=== PATIENT | female | born 2000 | race Caucasian/White ===

== ENCOUNTER 2023-01-17 13:41 | Outpatient (CLI) | payer MEDICAID, SELFPAY ==
--- NOTE | 2023-01-17 14:00 | CRLHL7_ITS ---
For Patients: As a result of the Century Cures Act, medical imaging exams and procedure reports are released immediately into your electronic medical record. You may view this report before your referring provider. If you have questions, please contact your health care provider. INDICATION: First trimester scan, establish dates. COMPARISON: None. TECHNIQUE: Real-time hilton-scale imaging of the pelvis was performed. FINDINGS: Sonographic imaging demonstrates a single living intrauterine gestation. The embryo demonstrates a regular cardiac rate measuring 159 beats per minute. The embryo`s crown-rump length measurement of 5.3 cm corresponds to a gestational age of 12 weeks 0 days with a sonographic due date of 08/01/2023. There is a normal-appearing yolk sac. There are no gross abnormalities noted within the embryo at this early state of development. The gestational sac has a normal appearance. There is a 2.3 x 1.2 x 1.0 cm perigestational hemorrhage superior and to the right of the gestational sac. The amount of fluid within the sac appears appropriate for gestational age. The cervix is closed. The myometrium appears normal. The ovaries are of normal size. There are no suspicious fluid collections noted in the cul-de-sac. IMPRESSION: Single living intrauterine with sonographic gestational age 12 weeks 0 days and sonographic due date 08/01/2023. Right superior subchorionic hemorrhage measuring 2.3 x 1.2 x 1.0 cm. Dictated by Kendall Dempsey MD @ 01/19/2023 9:43:15 AM (Electronically Signed)
== END 2023-01-17 13:42 | disposition home or self-care (01) ==
LOC: US 13:42
PROVIDERS: Visit Provider Registered Nurse
DX: Z34.81 Encounter for supervision of other normal pregnancy, first trimester (principal); Z3A.12 12 weeks gestation of pregnancy
CPT/HCPCS: 76817

== ENCOUNTER 2023-01-17 14:54 | Outpatient (CLI) | payer MEDICAID, SELFPAY ==
[2023-01-17 19:06] LABS: Chlamydia DNA Amplified* NOT DETECTED (No Detected); GC DNA Amplified* NOT DETECTED (No Detected)
== END 2023-01-17 14:55 | disposition home or self-care (01) ==
PROVIDERS: Visit Provider Registered Nurse
DX: Z34.91 Encounter for supervision of normal pregnancy, unspecified, first trimester (principal); O20.9 Hemorrhage in early pregnancy, unspecified; Z3A.12 12 weeks gestation of pregnancy
CPT/HCPCS: 86592; 86703; 86762; 86787; 86803; 86850; 86900; 86901; 87086; 87186; 87340; 87491; 87591

== ENCOUNTER 2023-11-05 22:15 | Emergency (ER) | payer MEDICAID, SELFPAY ==
[2023-11-05 22:26] VITALS: BP 126/84; PULSE 120; RESP 16; TEMP 36.5; O2SAT 97; BMI 36.0
--- NOTE | 2023-11-05 22:45 | ED.GENADULT ---
HPI - General Adult General Chief complaint: Fever Stated complaint: possible mastitis Time Seen by Provider: 11/05/23 22:24 History of Present Illness HPI narrative: states 4d L sided mastitis, child 4 mo old , pt pumping. tylenol at 1600 . pt states also 2 days of nausea, headache, chills, fever 99.x 23-year-old woman presenting to the emergency department with complaint of concern of potential mastitis. Over the last 4 days has had increasing left-sided breast pain and some swelling. Has not noticed any unusual discharge or drainage. Has then had 2 days now of worsening body aches and chills. Has not measured a fever though elevated temperature little over 99. Is also nauseated. No abdominal pain. No vomiting or diarrhea. Does have a history of exercise-induced asthma and she is feeling a little tighter in her chest but otherwise no chest pain. No rashes noted otherwise. . Has never had mastitis. Child is 4-month-old. She is getting little breast milk anymore. She has not been breast-feeding at that left side since has been hurting but has been pumping. Marge herself due to feeling bad and with nausea is had limited intake over the last couple of days. Related Data Home Medications Medication Instructions Recorded Confirmed docosahexaenoic acid 200 mg mg PO 01/17/23 01/17/23 capsule ( DHA) Previous Rx's Medication Instructions Recorded promethazine 12.5 mg tablet 12.5 - 25 mg (1 - 2 x 12.5 mg) PO 01/17/23 Q4-6H PRN nausea and vomiting #30 tabs cephalexin 500 mg capsule 500 mg PO QID 8 days #32 caps 11/06/23 ondansetron 4 mg disintegrating 4 mg PO Q6H PRN nausea and 11/06/23 tablet vomiting #10 tabs Allergies Allergy/AdvReac Type Severity Reaction Status Date / Time amoxicillin Allergy Severe Anaphylaxis Verified 01/17/23 14:23 penicillin V Allergy Severe Anaphylaxis Verified 01/17/23 14:23 Review of Systems Status of ROS: Reports: 6 or more systems reviewed and unremarkable except as noted in History and below [facility] Medical History History of labor ?Z87.51 - Personal history of pre-term labor (ICD-10) Anxiety and depression ?F41.9 - Anxiety disorder, unspecified (ICD-10) ?F32.A - Depression, unspecified (ICD-10) PTSD (post-traumatic stress disorder) ?F43.10 - Post-traumatic stress disorder, unspecified (ICD-10) Vestibular neuronitis ?H81.20 - Vestibular neuronitis, unspecified ear (ICD-10) Obesity with body mass index (BMI) of 35.0 to 39.9 without comorbidity ?E66.9 - Obesity, unspecified (ICD-10) History of spontaneous (2018) ?Z87.59 - Personal history of other complications of , childbirth and the puerperium (ICD-10) Chorioamnionitis (2018) ?O41.1290 - Chorioamnionitis, unspecified trimester, not applicable or unspecified (ICD-10) Surgical History History of vaginal delivery History of ovarian cystectomy (10/25/20) ?Z98.890 - Other specified postprocedural states (ICD-10) ?Z87.42 - Personal history of other diseases of the female genital tract (ICD-10) Cervical cerclage suture present in third trimester (03/10/20) ?O34.33 - Maternal care for cervical incompetence, third trimester (ICD-10) Family History Daughter Polydactyly Social History Smoking Status: Never smoker Do you use any of these nicotine containing products: None Second hand tobacco smoke exposure: No How often do you have a drink containing alcohol: never How often do you have six or more drinks on one occasion: Never AUDIT-C Alcohol total score: 0 Non-prescribed substance use: denies use Little interest or pleasure in doing things: not at all Feeling down, depressed, or hopeless: not at all service: No Exam Narrative: Exam Narrative: Pleasant. Clearly uncomfortable. Breathing easily. Skin is quite warm and dry. She has some outer zygomatic arch area tattoos. Extremities well perfused without edema. Lungs are clear; without wheeze. Heart is tachycardic. Abdomen is overweight soft nontender. Oropharynx is without erythema little sticky. Neck is supple without lymphadenopathy. Breasts are somewhat pendulous. The left breast is notably a little larger than the right. There is trace darkening or faint erythema in the nadeen-aerolar area. Exquisitely tender to palpation. I do not appreciate discrete a track of erythema though there. No fluctuance or changes consistent with abscess. No discharge noted. The right breast is unremarkable. Const: Vital Signs, click to edit/add: Vital Signs - 24 hr 11/05/23 22:26 Temperature 97.7 F Pulse Rate [Pulse Oximeter] 120 H Respiratory Rate 16 Blood Pressure [Ri t Upper Arm] 126/84 Pulse Oximetry 97 Oxygen Delivery Me thod Room Air Documenting provider has reviewed patient's vital signs: yes Course Vital Signs Vital signs: Initial Vital Signs Temperature 97.7 F 11/05/23 22:26 Temperature Source Temporal Artery Scan 11/05/23 22:26 Pulse Rate 120 H 11/05/23 22:26 Respiratory Rate 16 11/05/23 22:26 Blood Pressure 126/84 11/05/23 22:26 Blood Pressure Mean 98 11/05/23 22:26 Blood Pressure Position Sitting 11/05/23 22:26 Pulse Oximetry 97 11/05/23 22:26 Oxygen Delivery Method Room Air 11/05/23 22:26 Vital Signs Temperature 97.7 F 11/05/23 22:26 Pulse Rate 120 H 11/05/23 22:26 Respiratory Rate 16 11/05/23 22:26 Blood Pressure 126/84 11/05/23 22:26 Pulse Oximetry 97 11/05/23 22:26 Oxygen Delivery Method Room Air 11/05/23 22:26 Temperature 97.7 F 11/05/23 22:26 Pulse Rate 120 H 11/05/23 22:26 Respiratory Rate 16 11/05/23 22:26 Blood Pressure 126/84 11/05/23 22:26 Pulse Oximetry 97 11/05/23 22:26 Oxygen Delivery Method Room Air 11/05/23 22:26 Medications Administered Medications: Discontinued Medications Generic Name Dose Route Start Last Admin Trade Name Freq PRN Reason Stop Dose Admin Sodium Chloride 1,000 mls @ 1,000 mls/hr 11/05/23 22:53 11/05/23 23:10 0.9 % Sodium Chloride 1000 Ml IV 11/05/23 23:52 1,000 mls/hr .Q1H ONE Administration Ketorolac Tromethamine 30 mg 11/05/23 22:53 11/05/23 23:10 Ketorolac 30 Mg/Ml Inj IVP 11/05/23 22:54 30 mg ONCE ONE Administration Ondansetron HCl 4 mg 11/05/23 22:53 11/05/23 23:10 Ondansetron 2 Mg/Ml Inj IVP 11/05/23 22:54 4 mg ONCE ONE Administration Medical Decision Making MDM Narrative Medical decision making narrative: Symptoms are not inconsistent with mastitis. Given community prevalence though also and without significant induration or redness of the breast, I would also screen for COVID influenza. Barring positive tests here I would consider than treating for mastitis. She does feel like she would benefit from some fluids. We can place IV and given normal saline, ketorolac also Zofran. Had noted some tightness in her chest but I do not otherwise see evidence of asthma exacerbation. On reassessment, color looks better. She admits she feels better. Skin seems cooler. CBC was normal and triple swab was negative. Symptoms still most consistent I think with mastitis given location of pain and physical findings. Did discuss potential allergies. Will give a dose of cephalexin here in the emergency department and continued outpatient course. See patient discharge plan Lab Data Lab results reviewed: Yes I reviewed the patient's lab results Labs: Lab Results 11/05/23 11/05/23 Range/Units 22:28 23:13 WBC 5.31 (4.50-11.00) K/uL RBC 4.95 (4.00-5.20) m/uL Hgb 13.6 (12.0-16.0) gm/dL Hct 42.2 (33.0-51.0) % MCV 85 (80-100) fL MCH 28 (26-34) pg MCHC 32 (32-36) gm/dL RDW Coeff of Shona 14.9 (11.5-15.5) % Plt Count 204 (140-440) K/uL Neut % (Auto) 65.1 (42.0-72.0) % Lymph % (Auto) 27.3 (20-44) % [place] % (Auto) 5.8 (0.0-11.0) % Eos % (Auto) 0.6 (0.0-7.0) % Baso % (Auto) 0.4 (0.0-3.0) % Neut # (Auto) 3.46 (1.7-7.0) K/uL Lymph # (Auto) 1.45 (0.90-2.90) K/uL [place] # (Auto) 0.30 (0.00-0.90) K/UL Eos # (Auto) 0.03 (0.00-0.50) K/uL Baso # (Auto) 0.02 (0.00-0.30) K/uL Abs Immat Gran (auto) 0.04 (0.00-0.30) K/uL Imm/Tot Granulo (auto) 0.8 % SARS-CoV-2 (PCR) Negative SARS-CoV-2 (Negative) Influenza Type A (PCR) Negative PCR FLU A (Negative) Influenza Type B (PCR) Negative PCR FLU B (Negative) RSV (PCR) Negative PCR RSV (Negative) Discharge Plan Discharge Clinical Impression: Mastitis Patient Disposition: Home w/ Parent or Adult Condition: Improved Additional Instructions: Stay well-hydrated. Can take up to 800 mg of ibuprofen up to 1000 mg of acetaminophen per dose. These can be combined. Continue to pump. Be seen for marked increase in redness tension pain or development of fever, spreading redness after 2 days, repeated vomiting. Prescriptions: New cephalexin 500 mg capsule 500 mg PO QID 8 Days Qty: 32 0RF ondansetron 4 mg tablet,disintegrating 4 mg PO Q6H PRN (Reason: nausea and vomiting) Qty: 10 0RF No Action DHA 200 mg capsule PO promethazine 12.5 mg tablet 12.5 - 25 mg PO Q4-6H PRN (Reason: nausea and vomiting) Qty: 30 2RF Follow Up/Referrals: Provider,Not a Local [Primary Care Provider] - Stand Alone Forms: true[x] [facility] Info Instructions
[2023-11-05] MEDS: KETOROLAC 30 MG/ML inj IVP (23:10)
[2023-11-05] MEDS: ONDANSETRON 2 MG/ML inj 4 MG IVP (23:10)
[2023-11-05] MEDS: 0.9 % SODIUM CHLORIDE 1000 ml 1,000 ML IV (23:10)
[2023-11-05 23:18] LABS: Basophils Percent Auto 0.4 % (0.0-3.0); Eosinophils Percent Auto 0.6 % (0.0-7.0); Hematocrit 42.2 % (33.0-51.0); Hemoglobin* 13.6 gm/dL (12.0-16.0); Immature Granulocytes Pct Auto 0.8 %; Lymphocytes Percent Auto 27.3 % (20-44); Mean Corpuscular HGB Conc 32 gm/dL (32-36); Mean Corpuscular Hemoglobin 28 pg (26-34); Mean Corpuscular Volume 85 fL (80-100); Monocytes Percent Auto 5.8 % (0.0-11.0); Neutrophils Percent Auto 65.1 % (42.0-72.0); Platelet Count* 204 K/uL (140-440); RDW Coefficient of Variation % 14.9 % (11.5-15.5); Red Blood Count 4.95 m/uL (4.00-5.20); White Blood Count* 5.31 K/uL (4.50-11.00)
[2023-11-05 23:19] LABS: Basophils Absolute Auto 0.02 K/uL (0.00-0.30); Eosinophils Absolute Auto 0.03 K/uL (0.00-0.50); Immature Granulocytes Abs Auto 0.04 K/uL (0.00-0.30); Lymphocytes Absolute Auto 1.45 K/uL (0.90-2.90); Neutrophils Absolute Auto 3.46 K/uL (1.7-7.0)
[2023-11-05 23:20] LABS: Slide Review Reflex No
[2023-11-05 23:21] LABS: PCR FLU A Negative PCR FLU A (Negative); PCR FLU B Negative PCR FLU B (Negative); PCR RSV Negative PCR RSV (Negative)
[2023-11-05 23:37] LABS: SARS PCR* Negative SARS-CoV-2 (Negative)
[2023-11-06] MEDS: cephALEXin 500 MG CAPSULE PO (00:18)
== END 2023-11-06 00:19 | disposition home or self-care (01) ==
PROVIDERS: Emergency Provider Family Medicine
DX: N61.0 Mastitis without abscess (principal)
CPT/HCPCS: 36415; 85025; 87631; 96361; 96374; 96375; 99284; A9270; J1885; J2405; J7030

== ENCOUNTER 2024-06-29 15:30 | Outpatient (CLI) | payer MEDICAID, SELFPAY ==
--- NOTE | 2024-06-29 16:00 | CRLHL7_ITS ---
For Patients: As a result of the Century Cures Act, medical imaging exams and procedure reports are released immediately into your electronic medical record. You may view this report before your referring provider. If you have questions, please contact your health care provider. OBSTETRICAL ULTRASOUND ??? ANATOMY SURVEY, 06/29/2024 INDICATION: anatomy survey. AURE by LMP: 11/02/2024 AURE by ULTRASOUND: 10/30/2024 GESTATIONAL AGE: 22 weeks 0 days TECHNIQUE: Transabdominal pelvic ultrasound. COMPARISON: None. FINDINGS: position: Vertex Cervix: Visualized Length of closed cervix: 3.7 cm Placenta position: Anterior Placenta tip to internal os: 10.0 cm Umbilical cord: 3-vessel cord Placental insertion: Central Amniotic fluid: 6.5 cm SDP ANATOMY SURVEY: Observed Structures Cerebellum: 2.4 cm, 23 weeks 3 days Cisterna magna: 4.8 mm Nuchal fold: 3.8 mm Lateral ventricle: 6.1 mm CSP Midline falx Choroid plexus Spine Stomach Abdominal cord insert Urinary bladder Kidneys Diaphragm Nose/lips Orbital view Profile Upper extremities Lower extremities Hands Feet 4-chamber heart LVOT RVOT 3VV 3VTV Biometry: BPD: 5.3 cm, 22 weeks 1 day, 51.3% HC: 20.2 cm, 22 weeks 3 days, 54.1% AC: 17.7 cm, 22 weeks 4 days, 60.6% FL: 3.6 cm, 21 weeks 4 days, 25.4% FL/AC: 20.62% HC/AC ratio: 1.15 heart rate: 142 bpm age by this ultrasound: 22 weeks 3 days AURE by this ultrasound: 10/30/2024 Estimated weight: 478.48 grams (1 pound 1 ounce) Percentile by AURE: 50.6% IMPRESSION: 1) Single viable intrauterine . 2) Measurements are consistent with dates. 3) Estimated weight is at the 51st percentile. Abdominal circumference is at the 61st percentile. 4) Normal anatomic survey. GUIDO ROE M.D. Body/Diagnostic Radiologist [email or web address] Transcribed: 2:[address]/Dictated by: Guido Roe MD @ 06/30/2024 1:23:00 PM (Electronically Signed)
== END 2024-06-29 15:31 | disposition home or self-care (01) ==
LOC: US 15:31
PROVIDERS: Visit Provider Registered Nurse
DX: Z34.92 Encounter for supervision of normal pregnancy, unspecified, second trimester (principal); Z3A.22 22 weeks gestation of pregnancy
CPT/HCPCS: 76805; 80306; 82565; 82570; 84156; 84443; 84450; 84460; 84520; 86703; 86706; 86803; 86850; 86900; 86901; 87086; 87340; 87491; 87591

== ENCOUNTER 2024-06-29 17:15 | Outpatient (CLI) | payer MEDICAID, SELFPAY ==
[2024-06-29 21:39] LABS: Chlamydia DNA Amplified* NOT DETECTED (No Detected); GC DNA Amplified* NOT DETECTED (No Detected)
== END 2024-06-29 17:16 | disposition home or self-care (01) ==
PROVIDERS: Visit Provider Registered Nurse
DX: Z34.92 Encounter for supervision of normal pregnancy, unspecified, second trimester (principal); Z3A.22 22 weeks gestation of pregnancy
CPT/HCPCS: 80306; 82565; 82570; 84156; 84443; 84450; 84460; 84520; 86592; 86703; 86704; 86706; 86762; 86787; 86803; 86850; 86900; 86901; 87086; 87186; 87340; 87491; 87591

== ENCOUNTER 2024-09-01 08:49 | Outpatient (CLI) | payer MEDICAID, SELFPAY | END 2024-09-01 08:50 | disposition home or self-care (01) | PROVIDERS: Visit Provider Advanced Practice Midwife | DX: Z34.83 Encounter for supervision of other normal pregnancy, third trimester (principal); F12.90 Cannabis use, unspecified, uncomplicated | CPT/HCPCS: 80306 ==

== ENCOUNTER 2024-10-01 15:24 | Outpatient (CLI) | payer MEDICAID, SELFPAY ==
[2024-10-01 19:47] LABS: Chlamydia DNA Amplified* NOT DETECTED (No Detected); GC DNA Amplified* NOT DETECTED (No Detected)
[2024-10-02 14:25] LABS: Strep B DNA Probe POSITIVE (Negative)
[2024-10-02 14:47] LABS: Strep B Susceptibility Needed? Yes
== END 2024-10-01 15:25 | disposition home or self-care (01) ==
PROVIDERS: Visit Provider Obstetrics & Gynecology
DX: Z34.93 Encounter for supervision of normal pregnancy, unspecified, third trimester (principal); Z3A.35 35 weeks gestation of pregnancy
CPT/HCPCS: 80306; 86592; 87081; 87086; 87186; 87491; 87591; 87653

== ENCOUNTER 2025-10-12 13:53 | Outpatient (CLI) | payer MEDICAID, SELFPAY ==
--- NOTE | 2025-10-12 14:00 | CRLHL7_ITS ---
For Patients: As a result of the Cures Act, medical imaging exams and procedure reports are released immediately into your electronic medical record. You may view this report before your referring provider. If you have questions, please contact your health care provider. OB ULTRASOUND LIMITED CLINICAL HISTORY: Dating and viability. COMPARISON: None. TECHNIQUE: Real time hilton scale imaging of the fetus was performed. Transabdominal imaging performed. FINDINGS: LMP: 03/22/2026. GA: 17 weeks 0 days. Gestation: Single. Cervix: Visualized. TA measurement: 3.6 cm. Positioning: Vertex. Amniotic Fluid: 3.7 cm SDP. Placenta: Technique: TA. Placenta Position: Anterior. Dopplers: Heart Rate: 167 bpm. BIOMETRY BPD: 3.2 cm, 16 weeks 0 days. 8.6% HC: 11.7 cm, 15 weeks 5 days. <3% AC: 9.3 cm, 15 weeks 3 days. 8.1% FL: 1.8 cm, 15 weeks 3 days. 3.% FL/AC Ratio: 19.66% HC/AC Ratio: 1.26. EFW: 125.8 grams, 0 lb 4 oz. Age by this US: 15 weeks 5 days. AURE by this US: 03/31/2026. Percentile by AURE: <3% IMPRESSION: 1. Single living intrauterine measures 15 weeks 5 days with sonographic due date 03/31/2026. 2. Estimated weight less than 3rd percentile. Head circumference less than 3rd percentile. All biometrics less than 10th percentile. Clinical date is likely incorrect. 3. Tiny incidental placental lakes noted. Kendall Dempsey M.D. Diagnostic Radiologist [email or web address] Transcribed: 4:31 pm DW/Dictated by: Kendall Dempsey MD @ 10/12/2025 3:50:00 PM (Electronically Signed)
== END 2025-10-12 13:54 | disposition home or self-care (01) ==
LOC: US 13:53
PROVIDERS: Visit Provider Registered Nurse
DX: Z34.92 Encounter for supervision of normal pregnancy, unspecified, second trimester (principal); Z3A.17 17 weeks gestation of pregnancy
CPT/HCPCS: 76815

== ENCOUNTER 2025-10-12 14:47 | Outpatient (CLI) | payer MEDICAID, SELFPAY | END 2025-10-12 14:48 | disposition home or self-care (01) | PROVIDERS: Visit Provider Registered Nurse | DX: Z34.82 Encounter for supervision of other normal pregnancy, second trimester (principal) | CPT/HCPCS: 80306; 83020; 83021; 85660; 86703; 86704; 86762; 86780; 86787; 86803; 86850; 87086; 87340 ==

== ENCOUNTER 2025-10-29 20:08 | Emergency (ER) | payer MEDICAID, SELFPAY ==
--- OUTSIDE RECORDS SUMMARY | 2025-09-30 19:55 | XMS_ITS | Encounter Summary ---
Author Organization [facility] Address [address] [place] [address] Care Team Providers Care Pathology Supervisor Name Role Phone Pedro Jonathon Kim MD Unavailable Carissa Hanna MD Unavailable Krishna Hannah PA-C Unavailable [phone] Lee Lugo MD Unavailable Mayte Alejandre PA-C Unavailable Haim Darby MD Unavailable Teetee Evans ROLLING MILL OPERATOR Primary Care Provider [phone] Teetee Evans CNP Unavailable [phone] Reason for Visit * ReasonCommentsOtalgia Encounter Details DateTypeDepartmentCare Team (Latest Contact Info)Kdqjpmqajyr64/28/2025 7:55 PM DOCTOR PODIATRIC MEDICINE - 09/30/2025 8:56 PM CSTEmerphyllis Pepe [facility] [address] [place] [address] Harry Joel MD [facility] [address] [place] [id number] Acute left otitis media (Primary Dx); Acute otitis externa of left ear, unspecified type Discharge Disposition: Home or Self Care Social History Tobacco UseTypesPacks/DayYears UsedDateSmoking Tobacco: ZypijoEauwqsvrzw2Psvs: 01/2017Smokeless Tobacco: NeverAlcohol UseStandard Drinks/WeekCommentsYes0 (1 standard drink = 0.6 oz pure alcohol)SociallySocial Connection and Isolation PanelAnswerDate RecordedFrequency of Communication with Friends and FamilyNot on file12/30/2023How often do you get together with friends or relatives?More than three times a week12/30/2023ttends Catholic ServicesNot on file12/30/2023 Active Member of Clubs or OrganizationsNot on file12/30/2023ttends Club or Organization MeetingsNot on file12/30/2023Marital StatusNot on file12/30/2023 PHQ-2AnswerDate RecordedPHQ-2 Qhyze222Finsteward [facility] care system [place] of Occupational Health - Occupational Stress QuestionnaireAnswerDate RecordedDo you feel stress - tense, restless, nervous, or anxious, or unable to sleep at night because your mind is troubled all the time - these days?Only a nydtbm2912/30/2023Exercise Vital SignAnswerDate RecordedOn average, how many days per week do you engage in moderate to strenuous exercise (like a brisk walk)?6 days12/30/2023Minutes of Exercise per SessionNot on file12/30/2023Edinburgh Depression Scale AnswerDate RecordedLast EPDS Total ScoreNot on file10/13/2024The thought of harming myself has occurred to me.Never10/13/2024dolescent EducationAnswerDate RecordedGetting School Help NeededNot on file07/25/2023Food InsecurityAnswerDate RecordedWithin the past 12 months, did you worry that your food would run out before you got money to buy more?No10/12/2024Within the past 12 months, did the food you bought just not last and you didn???t have money to getmore?No 10/12/2024Housing StabilityAnswerDate RecordedDo you have housing? (Housing is defined as stable permanent housing and does not include staying outside in a car, in a tent, in an abandoned building, in an overnight half-way, or couch-surfing.)Yes10/12/2024re you worried about losing your housing?No 10/12/2024Financial Resource StrainAnswerDate RecordedWithin the past 12 months, have you or your family members you live with been unable to get utilities (heat, electricity) when it was really needed?No10/12/2024Transportation Needs AnswerDate RecordedWithin the past 12 months, has lack of transportation kept you from medical appointments, getting your medicines, non-medical meetings or appointments, work, or from getting things that you need?Yes10/12/2024 Interpersonal SafetyAnswerDate RecordedDo you feel physically and emotionally safe where you currently live?Yes10/12/2024Within the past 12 months, have you been hit, slapped, kicked or otherwise physically hurt by someone?No10/12/2024 Within the past 12 months, have you been humiliated or emotionally abused in other ways by your partner or ex-partner?No10/12/2024CommentsNoSex and Gender InformationValueDate RecordedSex Assigned at BirthNot on fileLegal Sex Hqxgqx8409/06/2012 3:40 AM CSTGender IdentityNot on fileSexual OrientationNot on fileOccupationIndustryJob Start DateJob End DatestudentNot on fileNot on fileNot on filedocumented as of this encounter Last Filed Vital Signs Vital SignReadingTime TakenCommentsBlood Nqmfmqyz998/8609/30/2025 8:50 PM DOCTOR PODIATRIC MEDICINE Pkjvf342709/30/2025 8:50 PM IJDYbaawvqcbki19.7 ??C (98 ??F)09/30/2025 7:49 PM DOCTOR PODIATRIC MEDICINE Respiratory Bwde516509/30/2025 7:49 PM CSTOxygen Yluvrghfgt457%09/30/2025 8:51 PM CSTInhaled Oxygen Concentration--Oyugow48.9 kg (213 lb 10 oz)09/30/2025 7:49 PM KSFMwkspj501.2 cm (5' 7)09/30/2025 7:49 PM CSTBody Mass Index33.4609/30/2025 7:49 PM CSTdocumented in this encounter Functional Status * Calculated C-SSRS Risk Score (Lifetime/Recent)AnswerDate of AssessmentAuthorNo Risk Amznfhlki27/28/2025 7:52 PM Debyb Ramos RN * [place] Suicide Severity Rating Scale (Screener/Recent Self-Report)Question AnswerDate of AssessmentAuthor1. Wish to be (Past 1 Month)No09/30/2025 7:52 PM Debby Ramos RN2. Non-Specific Active Suicidal Thoughts (Past 1 Month)No09/30/2025 7:52 PM Debby Ramos RN6. Suicidal Behavior (Lifetime)No09/30/2025 7:52 PM Debby Ramos RN documented as of this encounter Discharge Instructions * Discharge Instructions* Harry Joel MD - 09/30/2025 8:45 PM DOCTOR PODIATRIC MEDICINE Discharge Instructions Otitis Media You or your child have an ear infection known as otitis media or middle ear infection (otitis = ear, media = middle). These infections often develop after a viral infection, such as a cold. The cold causes swelling around the pressure- equalizing tube of the ear, which allows fluid to build up in the space behind the eardrum (the middle ear). This fluid build-up can trap bacteria and viruses and increase pressure on the eardrum causing pain. Symptoms of an ear infection can include earache/pain and decreased hearing loss. These symptoms often come on suddenly. For children, symptoms may include fever (temperature >100.4 F), pulling on the ear, fussiness, and decreased activity/appetite. Generally, every Emergency Department visit should have a follow-up clinic visit with either a primary or a specialty clinic/provider. Please follow-up as instructed by your emergency provider today. Return to the Emergency Department if: Your child becomes very fussy or weak. The symptoms get worse, or if you develop a severe headache, stiff neck, or new symptoms. Treatment: The best treatment depends on your age, history of previous infections, and any underlying medical problems. Antibiotics are not given to every patient with an ear infection because studies show that many people with ear infections will improve without using antibiotics. Because antibiotics can have side effects such as diarrhea and stomach upset and can also cause severe allergic reactions, providers aretrying to avoid using antibiotics if it is safe for the patient to do so. In these cases, a prescription for antibiotics may be given to be filled in 24 -48 hours if symptoms are getting worse or notimproving (this is often called ???wait and see?? treatment). If the symptoms are improving, the antibiotic does not need to be taken. Remember, antibiotics do not treat pain. Pain medications. You may take a pain medication such as Tylenol?? (acetaminophen), Advil?? (ibuprofen), Nuprin?? (ibuprofen) or Aleve?? (naproxen). Complications: Tympanic membrane rupture - One possible complication of an ear infection is rupture of the tympanic membrane, or ear drum. This happens because of pressure on the tympanic membrane from the infectedfluid. When the tympanic membrane ruptures, you may have pus or blood drain from the ear. It does not hurt when the membrane ruptures, and many people actually feel better because pressure is released. Fortunately, the tympanic membrane usually heals quickly after rupturing, within hours to days. You should keep water out of the ear until you re-check with your provider to be sure the ear drum has healed. Mastoiditis - Rarely, the area behind the ear can become infected, this area is called the mastoid.If you notice redness and swelling behind your ear, see your provider or return to the Emergency Department immediately. Hearing loss - The fluid that collects behind the eardrum (called an effusion) can persist for weeks to months after the pain of an ear infection resolves. An effusion causes trouble hearing, which is usually temporary. If the fluid persists, however, it can interfere with the process of learning to speak. For this reason, children under 2 need to be seen by their train control electronic technician WITHIN 3 MONTHS to ensure that the fluid has resolved. If you were given a prescription for medicine here today, be sure to read all of the information (including the package insert) that comes with your prescription. This will include important information about the medicine, its side effects, and any warnings that you need to know about. The pharmacist who fills the prescription can provide more information and answer questions you may have about the medicine. If you have questions or concerns that the pharmacist cannot address, please call or return to the Emergency Department. Remember that you can always come back to the Emergency Department if you are not able to see your regular provider in the amount of time listed above, if you get any new symptoms, or if there is anything that worries you. Discharge Instructions Otitis Externa Today you were seen for otitis externa which is a condition that occurs when the ear canal, which is the area that leads from the outer ear to the ear drum, becomes irritated as a result of an infection, allergy, or skin problem. The most common symptoms of this are: pain in the outer ear, especially when the ear is moved, itchiness of the ear, fluid or pus leaking from the ear and difficulty hearing clearly. Swimmer's ear is the name for external otitis that occurs in a person who swims frequently. Generally, every Emergency Department visit should have a follow-up clinic visit with either a primary or a specialty clinic/provider. Please follow-up as instructed by your emergency provider today. Return to the Emergency Department if: Your symptoms get worse, or if you develop a severe headache, stiff neck, or new symptoms. The pain and swelling spread to your face. You develop high fever. Treatment: Treatment of otitis externa aims to reduce pain and eliminate the infection. You should take eitherAdvil?? (ibuprofen) or Tylenol?? (acetaminophen) for control of the ear pain. Ear drops -- Ear drops are usually prescribed to both reduce pain and swelling and kill the bacteria which causes external otitis. It is important to apply the ear drops correctly so that they reach the ear canal: Lie on your side or tilt your head towards the opposite shoulder. Fill the ear canal with drops. Lie on your side for [address] cotton ball in the ear canal for 20 minutes. Finish the entire course of treatment, even if you begin to feel better within a few days. Avoid getting ears wet -- during treatment, you should avoid getting the inside of your ears wet. While showering, you can place a cotton ball coated with petroleum jelly in the ear. However, you should not swim for 7 to 10 days after starting treatment. Avoid wearing hearing aids and in-ear headphones until pain improves. If a wick has been placed in your ear, please do not remove it until seen by your primary provider or Ear, Nose, and Throat (ENT) specialist as directed. Prevention: Do not clean ear canal. Ear wax serves to protect the ears from water, bacteria, and injury. Excessive cleaning or scratching can injure the skin, potentially leading to infection. Swimming on a regular basis removes some of the ear wax, allowing water to soften the skin. Bacteria, which normally live in the ear canal, can then enter the skin more easily. Wearing devices that block the ear canals, such as hearing aids, headphones, or ear plugs, can increase the risk of external otitis (if worn frequently) by injuring the skin. If you swim frequently, experts recommend the following tips to reduce the chance of developing external otitis: Shake your ears dry after swimming. Use ear drops after swimming to prevent ear infections; these are available at most pharmacies without a prescription. Consider wearing ear plugs made for swimming. If you were given a prescription for medicine here today, be sure to read all of the information (including the package insert) that comes with your prescription. This will include important information about the medicine, its side effects, and any warnings that you need to know about. The pharmacist who fills the prescription can provide more information and answer questions you may have about the medicine. If you have questions or concerns that the pharmacist cannot address, please call or return to the Emergency Department. Remember that you can always come back to the Emergency Department if you are not able to see your regular provider in the amount of time listed above, if you get any new symptoms, or if there is anything that worries you. OR PODIATRIC MEDICINE documented in this encounter Medications at Time of Discharge MedicationSigDispense QuantityRefillsLast FilledStart DateEnd Date EPINEPHrine (ANY BX GENERIC EQUIV) 0.3 MG/0.3ML injection 2-pack Indications:Food allergyInject 0.3 mLs (0.3 mg) into the muscle as needed for anaphylaxis 2 each 04/06/2024 cefdinir (OMNICEF) 300 MG capsule Take 1 capsule (300 mg) by mouth 2 times daily for 10 days. 20 capsule ciprofloxacin-dexAMETHasone (CIPRODEX) 0.3-0.1 % otic suspension Place 4 drops Into the left ear 2 times daily for 10 days. 7.5 mL amphetamine-dextroamphetamine (ADDERALL) 30 MG tablet Indications:Adult ADHDTake 1 tablet (30 mg) by mouth 2 times daily. 60 tablet documented as of this encounter ED Notes * Harry Joel MD - 09/30/2025 8:01 PM CST Emergency Department Note History of Present Illness Chief Complaint Otalgia HPI Marge Grayson is a 25 year old female with no pertinent history who presents to the ED forevaluation of otalgia. The patient reports that her left ear began to cause discomfort earlier today, and has gotten worse since onset. Localized left not right. No injuries of ear. Pain is localizedinside of left ear. The right ear feels regular. Denies throat pain, difficulty swallowing. No medical problems, history of issues with the ear. She has an allergy to amoxicillin and penicillin. Following primary care physician at [facility]. Independent Historian None Review of External Notes None Past Medical History Medical History and Problem List MDD ADHD Anxiety Chronic constipation History of asthma Marijuana use History of concussion Obesity PTSD Medications Adderall Surgical History Cervical cerclage, x3 Physical Exam Patient Vitals for the past 24 hrs: BP Temp Pulse Resp Height Weight 09/30/251948 (!) 136/92 98 ??F (36.7 ??C) 102 19 1.702 m (5' 7) 96.9 kg (213 lb 10 oz) Physical Exam Constitutional: Well appearing. HEENT: Atraumatic. PERRL. EOMI. sclera normal bilaterally. No facial swelling or erythema. Mastoid without erythema or warmth. No tenderness. Left TM is erythematous and bulging. Mild swelling and tenderness of the external auditory canal. Moist mucous membranes. Neck: Soft. Supple. No masses or swelling. Musculoskeletal: No edema. Normal range of motion. Neurologic: Alert and oriented. Normal tone and bulk. Normal gait. Skin: No rashes. No edema. Psych: Normal affect. Normal behavior. Diagnostics Lab Results Labs Ordered and Resulted from Time of ED Arrival to Time of ED Departure - No data to display Imaging No orders to display EKG Independent Interpretation None ED Course Medications Administered Medications oxyCODONE (ROXICODONE) tablet 5 mg (5 mg Oral $Given 09/30/252051) cefdinir (OMNICEF) capsule 300 mg (300 mg Oral $Given 09/30/252048) Procedures Procedures Discussion of Management None ED Course ED Course as of 09/30/252039Sep 30, 20252036 I obtained history and examined the patient as noted above Additional Documentation None Medical Decision Making / Diagnosis [facility] Diagnoses: None MIPS None MDM Marge Grayson is a 25 year old female who is afebrile and hemodynamically stable. She has an obvious otitis media without perforation of her left ear. There is also suggestion of an otitis externa with pain with insertion of otoscope and some mild edema. No mastoiditis. She is otherwise well and nontoxic-appearing. Discussed plan for home with antibiotics treatment for otitis media and otitis externa and close primary care follow-up. She was given dose of pain medication here. She is in agreement +'s plan. Discussed supportive care at home and strict return precautions were given. Her questions were answered and she was in no distress at time of discharge. Disposition The patient was discharged. Diagnosis ICD-10-CM 1. Acute left otitis media H66.92 2. Acute otitis externa of left ear, unspecified type H60.502 Discharge Medications Discharge Medication List as of 09/30/2025 8:52 PM START taking these medications Details cefdinir (OMNICEF) 300 MG capsule Take 1 capsule (300 mg) by mouth 2 times daily for 10 days., Disp-20 capsule, R-0, E-Prescribe ciprofloxacin-dexAMETHasone (CIPRODEX) 0.3-0.1 % otic suspension Place 4 drops Into the left ear 2 times daily for 10 days., Disp-7.5 mL, R-0, E-Prescribe Scribe Disclosure: I, José Miguel Dos Santos, am serving as a scribe at 8:40 PM on 09/30/2025 to document services personally performed by Harry Joel MD based on my observations and the provider's statements to me. Harry Joel MD 10/01/25 9180 OR PODIATRIC MEDICINE * Debby Moran RN - 09/30/2025 7:51 PM CST Pt arrives to hospital with L Ear pain rating pain 10/10 that started earlier today and has worsened in the last few hours. Pt did not take any meds prior to arrival. Denies trauma. Last ear infection was in childhood. VSS afebrile Triage Assessment Row Name 09/30/25 1950 Triage Assessment Airway WDL WDL Respiratory WDL Respiratory WDL WDL Skin Circulation/Temperature WDL Skin Circulation/Temperature WDL WDL Cardiac WDL Cardiac WDL WDL Peripheral/Neurovascular WDL Peripheral Neurovascular WDL WDL Cognitive/Neuro/Behavioral WDL Cognitive/Neuro/Behavioral WDL WDL OR PODIATRIC MEDICINE documented in this encounter Plan of Treatment DateTypeDepartmentCare Team (Latest Contact Info)Eccqzpyijyi04/02/2026 10:30 AM CSTOffice Visit [facility] [address] [place] [address] Teetee Evans, [facility] [address] [place] [address] documented as of this encounter Visit Diagnoses Diagnosis Acute left otitis media- Primary Unspecified otitis media Acute otitis externa of left ear, unspecified type documented in this encounter Administered Medications Medication OrderMAR ActionAction DateDoseRateSite cefdinir (OMNICEF) capsule 300 mg STAT, 300 mg, Oral, ONCE, On Fri09/30/25 at 2044, For 1 dose, Indications: Otitis media Indications:Otitis media$Given09/30/2025 8:49 PM [id number] mg oxyCODONE (ROXICODONE) tablet 5 mg 5 mg, Oral, ONCE, On Fri09/30/25 at 2044, For 1 dose $Given09/30/2025 8:52 PM CST5 mgdocumented in this encounter Active and Recently Administered Medications Times are shown in DOCTOR PODIATRIC MEDICINE.Medication Order// cefdinir (OMNICEF) capsule 300 mg (COMPLETED) STAT, 300 mg, Oral, ONCE, On Fri09/30/25 at 2044, For 1 dose, Indications: Otitis media * 2048 ($Given - Provider: Maddi Block RN) oxyCODONE (ROXICODONE) tablet 5 mg (COMPLETED) 5 mg, Oral, ONCE, On Fri09/30/25 at 2044, For 1 dose * 2051 ($Given - Provider: Maddi Block RN) documented in this encounter Additional Health Concerns AssessmentNoted TimePHQ-9 Depression Total Score: 12:45 PM CDT documented as of this encounter Care Teams Team MemberRelationshipSpecialtyStart DateEnd Date Teetee Evans, ROLLING MILL OPERATOR [address] [place] [address] PCP - GeneralInternal Medicine11/12/24 Jonathon Vasquez MD [address] [facility] [address] [facility] [address] [place], [place] [address] Maternal Medicine SpecialistOB/Gyn01/30/18 Carissa Hanna MD [address] [place] [address] MDOB/Gyn02/23/18 Krishna Hannah PA-[place] [address] [place] [address] Referring PhysicianFamily Medicine05/08/22 Lee Lugo MD [address] [facility] [address] [place], [place] [address] MDAllergy & Immunology05/08/22 Mayte Alejandre PA-C [address] [place], [place] [id number] Physician AssistantDermatology05/16/22 Haim Darby MD [address] [place] [address] MDOB/Gyn2 Teetee Evans, ROLLING MILL OPERATOR [address] [place], [place] [address] Assigned PCP07/26/25documented as of this encounter
--- OUTSIDE RECORDS SUMMARY | 2025-10-29 20:10 | XMS_ITS | Patient Health Record ---
Author Organization [facility] [place] [address] [place] [address] Care Team Providers Care Arc Welder Apprentice Name Role Phone Dave Vanegas Primary Care Provider Allergies Allergen (clinical drug ingredient) Drug/Non Drug Allergy documented on EMR Reaction Allergy Type Onset Date Status amoxicillin Amoxicillin Unknown Drug Allergy ActivePenicillinUnknownDrug AllergyActive Reason For Referral No Information Medications Medication SIG (Take, Route, Frequency, Duration) Notes Start Date End Date Status ActiveTylenolActiveSertraline HCl 50 MG1 tablet Orally Once a day; Duration: 90 days1Active Social History Tobacco Use: Social History Observation Description Date Details (start date - stop date) Former Smoker NA - NA Tobacco Use/Smoking Question Answer Notes Are you a former smoker How long has it been since you last smoked?5-10 yearsAlcohol Screen (Audit-C) Question Answer Notes Did you have a drink containing alcohol in the p ast year? No Xueuya9JgiyohsonjkrezKrddoiugEnibuf History Question Answer Notes Had sex in the past 12 months (vaginal, oral, or anal)? Yes Have you ever had a Sexually transmitted disease?No Problems Problem Type SNOMED Code ICD Code Onset Dates Problem Status W/U Status Risk Notes Problem Major depression, si ngle episode (07837126) Major depressive disorder, single episode, unspecified (F32.9) ActiveconfirmedProblemHistory of cervical incompetence in , currently (O09.299)ActiveconfirmedProblemHistory of premature delivery (071886456)History of delivery, currently (O09.899)Active confirmed Plan Of Treatment No Information Insurance Providers Payer Name Payer Address Payer Phone Subscriber Number Group Number Insured Name Patient Relationship to Insured Coverage Start Date Coverage End Date [facility] 2019 [address] [place], [place] [address] [phone] [id number], CaitlynSelf - patient is the insured Medical (General) History Medical History History ICD Code Endometriosis asthmaRight dermoid cyst-removedCervical incompetenceDepression and Anxiety Surgical History Surgery Date(Month/Year) Right ovarian dermoid cyst removal 10/22 20 Cerclage done for incompetent cervix x 3
--- OUTSIDE RECORDS SUMMARY | 2025-10-29 20:10 | XMS_ITS | Clinical Summary ---
Author Organization [facility] Address [address] [place] [address] Care Team Providers Care Textile Examiner Name Role Phone Anahi Reeder MD Primary Care Provider + [phone] Source Comments You are receiving this document as you are listed as the primary care provider,follow-up provider, or the patient has been referred to you for consultation.This is in compliance with the Medicare andMedicaid EHR Incentive Program,which states Providers who transition their patient to another setting of careor provider of care or refers their patient to another provider of care shouldprovide summary care record for each transition of care or referral. [facility] Allergies Active AllergyReactionsCriticalityNoted DateCommentsPenicillinsAnaphylaxisHigh 05/01/2015 Medications MedicationSigDispense QuantityRefillsLast FilledStart DateEnd DateStatus unknown medication Indications: PN:02/26/2010ctive Encounters DateTypeDepartmentCare KpopVstfjdmmyzr16/10/2025 1:40 PM CSTOffice Visit [place] [facility] [address] [place] [address] Quiana Zuluaga MD Amenorrhea; , unspecified gestational agefrom Last 3 Months Social History Tobacco UseTypesPacks/DayYears UsedDateSmoking Tobacco: NeverCommentsYes Sex and Gender InformationValueDate RecordedSex Assigned at BirthNot on file Legal YwcCovjwh83/10/2012 5:49 AM CDTGender IdentityNot on fileSexual OrientationNot on file Last Filed Vital Signs Vital SignReadingTime TakenCommentsBlood Gtdxttlj102/7911 1:38 PM DOPSTER Pbgkd1536 1:38 PM ZSVFttobhgyhse10.7 ??C (98 ??F)09/12/2025 1:38 PM DOPSTER Respiratory Pjzo548211/12/2024 1:38 PM CSTOxygen Ggcjrvnxoo335%09/12/2025 1:38 PM CSTInhaled Oxygen Concentration--Jznpuz04.9 kg (120 lb 15.8 oz)02/26/2010 5:38 PM CDTC: 54.9kgHeight--Body Mass Index-- Plan of Treatment Health MaintenanceDue DateLast DoneCommentsCervical Cancer Screening Due 1998Hep C Screening (Preventive Services)1998IPV (Polio) Vaccine (4 of 4 - 4-dose series), 1998, 1998HepA Vaccine (2 of 2 - 2-dose series)dult Preventive Visit2016HepB Vaccine (1)2017COVID-19 Vaccine (1 - season)2025Influenza Vaccine (#1)503/, 08/25/2019, 12/02/2017, Additional history existsDTaP/Tdap/Td Vaccine (12 - Tdap)411/, 06/03/2023, 08/30/2021, Additional history existsZoster/Shingles Vaccine (1 of 2)2048 Hib WtwhawlSdxytmdtd95/04/1999, 01/24/1999, 1998, Additional history existsMCV4 VaccineAged Out08/06/2010No longer eligible based on patient's age to complete this topicHPV QdkcwvpZuarinegr54/01/2011, 12/06/2010, 08/06/2010 TwzhgcigiBhztdjckzcun47/05/2021, 06/08/2019, 05/07/2019HIV Screening (Preventive Services)Cowwxvunc08/05/2021Meningococcal B VaccineAged OutNo longer eligible based on patient's age to complete this topicPneumococcal VaccineAged OutNo longer eligible based on patient's age to complete this topic Procedures Procedure NamePriorityDate/TimeAssociated DiagnosisCommentsPREGNANCY TEST (URINE)STAT111/12/2024 2:02 PM DOPSTER Amenorrhea from Last 3 Months Results * (ABNORMAL) Test (Urine) - Collect in Lab (09/12/2025 2:02 PM DOPSTER) ComponentValueRef RangeTest MethodAnalysis TimePerformed AtPathologist SignatureHCG, UrinePositive(A)Ndapcvrp74/10/2025 2:11 PM CSTFRANKLIN LABORATORYSpecimen (Source)Anatomical Location / LateralityCollection Method / VolumeCollection TimeReceived TimeUrineNon-blood Collection / Unknown 09/12/2025 2:02 PM CST09/12/2025 2:07 PM DOPSTER Narrative Authorizing ProviderResult TypeResult StatusSandra Paolo Zuluaga MDLAB_1Final Result Performing OrganizationAddressCity/State/ZIP CodePhone Number [facility] CLIA: [id number] [address] [place] [address], [facility] from Last 3 Months Insurance * Guarantor: Marge Eason TypeRelation to PatientDate of PhoneBilling AddressPersonal/UjjgsjSfkw2000 RETURNED MAIL [phone] [address] * Guarantor: Marge Eason FAccostanley TypeRelation to PatientDate of PhoneBilling AddressPersonal/OfkzsuQtoc2000 RETURNED MAIL [phone] [place] [address] * Guarantor: Arun BlancoAccostanley TypeRelation to PatientDate of BirthPhone Billing AddressPersonal/LwwkiyRiidpk48[birth year][phone] [place] [address] * Guarantor: Vannessa Blanco TypeRelation to PatientDate of BirthPhone Billing AddressPersonal/LiiylfStidyk55/31/1977 [phone] [place] [address] Care Teams Team MemberRelationshipSpecialtyStart [place] [address] JOSE F Mckeon [address] [facility]02/04/11
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
--- OUTSIDE RECORDS SUMMARY | 2025-10-29 20:11 | XMS_ITS | Clinical Summary ---
Author Organization [place] Address [address] [place] [address] Care Team Providers Care Certified Nurse Midwife Name Role Phone Pedro Jonathon Kim MD Unavailable [phone] Carissa Hanna MD Unavailable [phone] Krishna Hannah PA-C Unavailable Lee Lugo MD Unavailable Mayte Alejandre PA-C Unavailable [phone] Haim Darby MD Unavailable Teetee Evans URBAN GARDENING SPECIALIST Primary Care Provider Teetee Evans CNP Unavailable [phone] Allergies Active AllergyReactionsCriticalityNoted DateCommentsAmoxicillinAnaphylaxisHigh 02/22/20131152QrtkDvbhsdnvRrfcbu45/16/2021 Apples, Walnuts, Avocados, Watermelon BwcvuwpgrpeTloymzsbmuyVmte74/22/2013Seasonal QvhpmalsdFsd51/12/2018 Medications MedicationSigDispense QuantityRefillsLast FilledStart DateEnd DateStatus EPINEPHrine (ANY BX GENERIC EQUIV) 0.3 MG/0.3ML injection 2-pack Indications:Food allergyInject 0.3 mLs (0.3 mg) into the muscle as needed for anaphylaxis 2 each 4Active amphetamine-dextroamphetamine (ADDERALL) 30 MG tablet Indications:Adult ADHDTake 1 tablet (30 mg) by mouth 2 times daily. 60 tablet 5Active amphetamine-dextroamphetamine (ADDERALL) 30 MG tablet Indications:Adult ADHDTake 1 tablet (30 mg) by mouth 2 times daily. 60 tablet Discontinued(Reorder (No AVS)) cefdinir (OMNICEF) 300 MG capsule Take 1 capsule (300 mg) by mouth 2 times daily for 10 days. 20 capsule Expired ciprofloxacin-dexAMETHasone (CIPRODEX) 0.3-0.1 % otic suspension Place 4 drops Into the left ear 2 times daily for 10 days. 7.5 mL Expired Active Problems ProblemNoted DateDiagnosed DateBacteriuria, kgyqlgaoavlr83/24/2025Marijuana use 05/26/20257013Ipwxetrp18/24/2025ontrolled substance agreement signed-Adderall 11/12/2024Obesity with body mass index (BMI) of 35.0 to 39.9 without comorbidity 12/30/2023TSD (post-traumatic stress disorder)12/30/2023Generalized weakness 02/18/2023 Overview (05/26/2025): I cannot stand for more than 5 minutes without the help of things/people Migraine hiwpyjkk80/18/2023 Overview (05/26/2025): About 5 per week at least. Adult ADHD12/31/2022 Overview (12/31/2022): Patient is followed by KRISHNA HANNAH for ongoing prescription of stimulants. All refills should be approved by this provider, or covering partner. Medication(s): Adderall 30mg. Maximum quantity per month: 60 Clinic visit frequency required: Q 6 months Controlled substance agreement on file: Yes Date(s): 12/31/22 Neuropsych evaluation for ADD completed: No Last [facility] website verification: done on 12/31/22 [email or web address] Cause of injury, fall04/02/2019History of mmrahx5912/23/2017Nausea and vomiting 02/22/2013Chronic pzcxjuatrwuc07/22/2013H/O irrkhjzugo14/22/2013nxiety 06/05/2012Major depressive disorder, single episode, decpvymcacc51/07/2011 Resolved Problems ProblemNoted DateDiagnosed DateResolved DateHistory of cervical incompetence in , currently cziihztb08History of delivery, currently gqxwhcss73History of labor05/26/2025 05/26/2025 Overview (05/26/2025): 1st 02/2018 24+ weeks. Girl Tamari 1lb 12oz. 3M NICU. Late carePregnancyGBS (group B Streptococcus carrier), +RV culture, currently vlzsyold22 COVID-19 affecting in third upmpmrupt40Incompetent givlqt23Preterm laborSVD (spontaneous vaginal delivery)Group B streptococcal infection during nfmuuhhmf78Preterm premature rupture of ncqpjpgoj49/16/2018 11/12/2024Preterm premature rupture of membranes (PPROM) with unknown onset of laborEncounter for triage in hkpoysc7302/11/2018 11/12/2024Short cervix with cervical cerclage, ekxecwehys75 equqmhfrntfo94Normal labor and nnfaknvn37/24/2018 11/12/2024bdominal pain in ehbxjqjfj03Supervision of normal first wtkogwjvc96Exercise-induced busdzo22 Drug abuseost concussion hxqbjufa99 Encounters DateTypeDepartmentCare MyqjCawyfntjimn85/08/2025Ref[facility] [address] [place] [phone] Teetee Evans, URBAN GARDENING SPECIALIST Refill Oyxekbr8809/30/2025 7:[address]GE - 09/30/2025 8:56 PM CSTEmerNorth[facility] [address] [place] [address] Harry Joel MD Acute left otitis media (Primary Dx); Acute otitis externa of left ear, unspecified type Discharge Disposition: Home or Self Care09/30/20253989Pmhwof80/10/2025Ref[facility] [address] [place] [phone] Teetee Evans, URBAN GARDENING SPECIALIST Refill Ebempzo4008/16/2025RefA[facility]kin Hospital [address] [place] [phone] Teetee Evans, URBAN GARDENING SPECIALIST from Last 3 Months Immunizations ImmunizationAdministration DatesNext DueDTAP (<7y)07/30/2000,01/24/19996200D2k6-37 Novel Flu- Nasal12/02/2009HIB(PRP-OMP)(PedvaxHIB)08/06/1999,01/24/1999, 1998,1998HPV Xsjibwrlwdkt28/01/2011,12/06/2010,08/06/2010HPV9 (Gardasil)06/03/2011,12/06/2010,08/06/2010HepB, Viyfvtsfhkp1998Hepatitis A (Vaqta/Havrix)(Peds 12m-18y)08/06/2010Hepatitis B, Adult (Energix-B/Recombivax HB)1998Hepatitis B, Peds (Engerix-B/Recombivax HB)01/24/1999,1998, 1998Historical DTP/aP01/,1998Influenza (IIV3) PF01/18/2008 Influenza (prior to 2023)12/02/2017Influenza Intranasal Axwmvut2909/30/2011 Influenza Vaccine >6 months,quad, PF01/17/2023,08/25/2019,12/02/2017,09/30/2011, 12/02/2009,01/18/2008MMR (MMRII)07/30/2000Meningococcal ACWY (Menactra??) 08/06/2010Poliovirus, inactivated (IPV)08/06/1999,1998,1998RSV (Abrysvo)10/01/2024TDAP (Adacel,Boostrix)10/01/2024,06/03/2023,08/30/2021, 07/14/2020,07/15/2019,08/06/2010TDAP Vaccine (Adacel)12/02/2017Varicella (Varivax)08/06/2010,08/06/1999 Family History Medical HistoryRelationCommentsNo Known ProblemsBrotherNo Known ProblemsFather CancerMaternal GrandfatherNo Known ProblemsMotherNo Known ProblemsSisterRelation StatusCommentsBrotherAliveFatherAliveMaternal GrandfatherAliveMaternal GrandmotherDeceasedMotherAlivePaternal GrandfatherAlivePaternal GrandmotherAlive SisterAlive Social History Tobacco UseTypesPacks/DayYears UsedDateSmoking Tobacco: YswfgsYnfzhhlmbs6Xmvm: 01/2017Smokeless Tobacco: NeverAlcohol UseStandard Drinks/WeekCommentsYes0 (1 standard drink = 0.6 oz pure alcohol)SociallySocial Connection and Isolation PanelAnswerDate RecordedFrequency of Communication with Friends and FamilyNot on file12/30/2023How often do you get together with friends or relatives?More than three times a week12/30/2023ttends Mormonism ServicesNot on file12/30/2023 Active Member of Clubs or OrganizationsNot on file12/30/2023ttends Club or Organization MeetingsNot on file12/30/2023Marital StatusNot on 12/30/2023 PHQ-2AnswerDate RecordedPHQ-2 Wgqoa308Finjordan valley medical center [place] of Occupational Health - Occupational Stress QuestionnaireAnswerDate RecordedDo you feel stress - tense, restless, nervous, or anxious, or unable to sleep at night because your mind is troubled all the time - these days?Only a eckqfp3712/30/2023Exercise Vital SignAnswerDate RecordedOn average, how many days [...] in an abandoned building, in an overnight jail, or couch-surfing.)Yes10/12/2024re you worried about losing your [...] RecordedSex Assigned at BirthNot on fileLegal Sex Mrpvjj3609/06/2012 3:40 AM CSTGender IdentityNot on fileSexual OrientationNot on fileOccupationIndustryJob Start DateJob End DatestudentNot on fileNot on fileNot on file Last Filed Vital Signs Vital SignReadingTime TakenCommentsBlood Opobfycc772/8609/30/2025 8:[address]GE Cfnte806409/30/2025 8:50 PM GQUPylttmwuruk00.7 ??C (98 ??F)09/30/2025 7:[address] Respiratory Wdhg278109/30/2025 7:49 PM CSTOxygen Kwivaiuyex215%09/30/2025 8:51 PM CSTInhaled Oxygen Concentration--Cocmak75.9 kg (213 lb 10 oz)09/30/2025 7:49 PM PAJSmthwn354.2 cm (5' 7)09/30/2025 7:49 PM CSTBody Mass Index33.4609/30/2025 7:[address]GE Plan of Treatment DateTypeDepartmentCare Team (Latest Contact Info)Umqalzzpcgy64/02/2026 10:30 AM CSTOffice Visit M [address] [place] [phone] Teetee Evans M, URBAN GARDENING SPECIALIST [address] [place] [address] Health MaintenanceDue DateLast DoneCommentsDEPRESSION ACTION PLAN1998 YEARLY PREVENTIVE VISIT5012/30/2023, 07/26/2013INFLUENZA VACCINE (#1) 503/, 08/25/2019, 12/02/2017, Additional history existsPHQ-9 , 11/05/2024, 07/22/2024, Additional history existsPAP , 02/14/2020ANNUAL REVIEW OF HM ZBYBDZ15, 08/20/2023, 04/16/2022DVANCE CARE QJXOYJKJ84, 07/23/2022 (Declined)DTAP/TDAP/TD VACCINE (12 - Td or Tdap)4112/01/2023, 06/03/2023, 08/30/2021, Additional history existsZOSTER VACCINE (1 of 2) 2048HEPATITIS B PXYTBTVWewapddpn38/24/1999, 1998, 1998, Additional history existsMENINGITIS VACCINEAged Out08/06/2010No longer eligible based on patient's age to complete this topicHPV CNENJWXDytdtropb01/01/2011, 06/03/2011, 12/06/2010, Additional history existsHEPATITIS C SCREENINGCompleted 06/29/2024, 01/17/2023, 06/07/2021HIV HFGNHYAINTcpbuvfig69/27/2024, 01/17/2023, 06/07/2021, Additional history existsCHLAMYDIA EKGIVMEJGVsewfmggwkle99/29/2024, 06/29/2024, 01/17/2023, Additional history existsRSV VACCINEDiscontinued 4COVID-19 VACCINEDiscontinuedPNEUMOCOCCAL VACCINE: PEDIATRICS (0 to 5 YEARS) AND AT-RISK PATIENTS (6 to 49 YEARS)Aged OutNo longer eligible based on patient's age to complete this topic Procedures Procedure NamePriorityDate/TimeAssociated DiagnosisCommentsCHLAMYDIA TRACHOMATIS YGGMjcuqyh90/06/2019 8:26 PM CDT HIV ANTIGEN ANTIBODY ICARZEnmtgim50/30/2018 2:[address] Encounter for supervision of normal first in first trimester from Last 3 Months or Most Recently Relevant to Health Maintenance Results * Chlamydia trachomatis PCR (06/08/2019 8:26 PM CDT)ComponentValueRef RangeTest MethodAnalysis TimePerformed AtPathologist SignatureSpecimen DescriptionVagina 06/08/2019 8:43 PM CDTFMILLE LACS HEALTH SYSTEM ONAMIA HOSPITALChlamydia Trachomatis PCR NegativeNEG^Pcbguevk17/07/2019 10:25 AM CDTINFECTIOUS DISEASES DIAGNOSTIC LABORATORYComment: Negative for C. trachomatis rRNA by quality assurance manager mediated amplification. A negative result by quality assurance manager mediated amplification does not preclude the presence of C. trachomatis infection because results are dependent on proper and adequate collection, absence of inhibitors, and sufficient rRNA to be detected. Specimen (Source)Anatomical Location / LateralityCollection Method / Volume Collection TimeReceived TimeSpecimen from vagina (specimen)06/08/2019 8:26 PM CDT06/08/2019 8:43 PM CDT Narrative Authorizing ProviderResult TypeResult StatusCallie Rosenthal MDLAB - MICRO GENERAL ORDERABLESFinal ResultPerforming OrganizationAddressCity/State/ZIP CodePhone Number [facility] [address] [place], [place] [phone] [place] [address] [address] [phone] * HIV Antigen Antibody Combo (12/02/2017 2:[address])ComponentValueRef RangeTest MethodAnalysis TimePerformed AtPathologist SignatureHIV Antigen Antibody Combo NonreactiveNR^Cztgqggexct30/31/2018 6:33 PM CSTUNBALTIMORE VA MEDICAL CENTERComment:HIV-1 p24 Ag & HIV-1/HIV-2 Ab Not DetectedSpecimen (Source) Anatomical Location / LateralityCollection Method / VolumeCollection Time Received TimeBlood specimen (specimen)12/02/2017 2:05 PM CST12/02/2017 2:[address]GE Narrative Authorizing ProviderResult TypeResult StatusHunter Damico MDLAB - BLOOD ORDERABLESFinal ResultPerforming OrganizationAddressCity/State/ZIP CodePhone Number [facility] [address] [place] [address] from Last 3 Months or Most Recently Relevant to Health Maintenance Insurance * Guarantor: Arun Blanco TypeRelation to PatientDate of PhoneBilling FewlrqgJlkescwmajUqzdtz68/31/1977 [address] [place] [address] * Guarantor: Marge Eason FAccount TypeRelation to PatientDate of PhoneBilling AddressWorker's ZqdebvqwernbEojc1998 none (Work) [address] [place] [address] Advance Directives For more information, please contact: [phone] * Full Code (Latest Code Status on File) Date ActivatedDate LcotuvpkphvBuwpibhs68/10/2024 1:29 AM10/12/2024 2:10 AMAll basic and advanced life-sustaining interventions are performed as appropriate QuestionAnswerCommentsCode status determined by:* Discussion with patient/ legal decision maker * Full Code Date ActivatedDate InactivatedComments07/24/2023 6:06 AM07/24/2023 1:00 PMAll basic and advanced life-sustaining interventions are performed as appropriate QuestionAnswerCommentsCode status determined by:* Discussion with patient/ legal decision maker * Full Code Date ActivatedDate InactivatedComments07/22/2011 9:23 PM07/26/2011 5:20 PM Care Teams Team MemberRelationshipSpecialtyStart DateEnd Date Teetee Evans CNP [address] [place] [address] PCP - GeneralInternal Medicine11/12/24 Jonathon Vasquez MD [address] [facility] [address] [place] [address] Maternal Medicine SpecialistOB/Gyn01/30/18 Carissa Hanna MD [address] [place] [address] MDOB/Gyn02/23/18 Krishna Hannah [place] [address] [place] [address] Referring PhysicianFamily Medicine05/08/22 Lee Lugo MD [address] [place] [address] MDAllergy & Immunology05/08/22 Mayte Alejandre PA-C [address] [place] [address] Physician AssistantDermatology05/16/22 Haim Darby MD [address] [place] [address] SITA/Gyn12/31/23 Teetee Evans, URBAN GARDENING SPECIALIST [address], [place] [address] Assigned PCP07/26/25
--- OUTSIDE RECORDS SUMMARY | 2025-10-29 20:11 | XMS_ITS | Encounter Summary ---
Author Organization [place] Address [address] [facility] [place] [address] Care Team Providers Care Offset Label Rewinder Name Role Phone Pedro Jonathon Kim MD Unavailable [phone] Carissa Hanna MD Unavailable [phone] Krishna Hannah PA-C Unavailable Lee Lugo MD Unavailable Mayte Alejandre PA-C Unavailable Haim Darby MD Unavailable Teetee Evans COMMERCIAL DEVELOPMENT MANAGER Primary Care Provider [phone] Teetee Evans CNP Unavailable [phone] Encounter Details DateTypeDepartmentCare Team (Latest Contact Info)Jqozeglzmmr47/28/2025Travel Social History Tobacco UseTypesPacks/DayYears UsedDateSmoking Tobacco: UqagbxZznohfyqdq3Wopf: 01/2017Smokeless Tobacco: NeverAlcohol UseStandard Drinks/WeekCommentsYes0 (1 standard drink = 0.6 oz pure alcohol)SociallySocial Connection and Isolation PanelAnswerDate RecordedFrequency of Communication with Friends and FamilyNot on file12/30/2023How often do you get together with friends or relatives?More than three times a week4Attends Anglican ServicesNot on file12/30/2023 Active Member of Clubs or OrganizationsNot on file4Attends Club or Organization MeetingsNot on file12/30/2023Marital StatusNot on file12/30/2023 PHQ-2AnswerDate RecordedPHQ-2 Odwsk107[place] of Occupational Health - Occupational Stress QuestionnaireAnswerDate RecordedDo you feel stress - tense, restless, nervous, or anxious, or unable to sleep at night because your mind is troubled all the time - these days?Only a lqkyfe9812/30/2023Exercise Vital SignAnswerDate RecordedOn average, how many days [...] in an abandoned building, in an overnight mcfp, or couch-surfing.)Yes10/12/2024re you worried about losing your [...] in other ways by your partner or ex-partner?No4CommentsNoSex and Gender InformationValueDate RecordedSex Assigned at BirthNot on fileLegal Sex Izycgt3209/06/2012 3:40 AM CSTGender IdentityNot on fileSexual OrientationNot on fileOccupationIndustryJob Start DateJob End DatestudentNot on fileNot on fileNot on filedocumented as of this encounter Plan of Treatment DateTypeDepartmentCare Team (Latest Contact Info)Vovbxlphime58/02/2026 10:30 AM CSTOffice Visit [facility] [address] [place] [address] Teetee Evans CNP [address] [place] [address] documented as of this encounter Visit Diagnoses Not on filedocumented in this encounter Additional Health Concerns AssessmentNoted TimePHQ-9 Depression Total Score: 12:45 PM CDT documented as of this encounter Care Teams Team MemberRelationshipSpecialtyStart DateEnd Date Teetee Evans CNP [address] [place], [place] [address] PCP - GeneralInternal Medicine11/12/24 Jonathon Vasquez MD [address] [facility] [address] [place] [address] Maternal Medicine SpecialistOB/Gyn01/30/18 Carissa Hanna MD [address] [place], [place] [address] MDOB/Gyn02/23/18 Krishna Hannah PA-C [address] [place] [address] Referring PhysicianFamily Medicine05/08/22 Lee Lugo MD [address] [place], [place] [address] MDAllergy & Immunology05/08/22 Mayte Alejandre PA-C [address] [place] [address] Physician AssistantDermatology05/16/22 Haim Darby MD [address], [place] [address] MDOB/Gyn12/31/23 Teetee Evans, COMMERCIAL DEVELOPMENT MANAGER [address], [place] [address] Assigned PCP07/26/25documented as of this encounter
--- OUTSIDE RECORDS SUMMARY | 2025-10-29 20:11 | XMS_ITS | Encounter Summary ---
Author Organization [place] Address [address] [place] [address] Care Team Providers Care Fleet Sales Associate Name Role Phone Pedro Jonathon Kim MD Unavailable Carissa Hanna MD Unavailable Krishna Hannah PA-C Unavailable Lee Lugo MD Unavailable Mayte Alejandre PA-C Unavailable Haim Darby MD Unavailable [phone] Teetee Evans JUVENILE CORRECTIONAL OFFICER Primary Care Provider Teetee Evans CNP Unavailable [phone] Reason for Visit * ReasonOnset DateCommentsRefill Lewkpiz1610/10/2025 Encounter Details DateTypeDepartmentCare Team (Latest Contact Info)Yzblmjxaooh58/08/2025Mundo Pepe [facility] [address] [place] [address] Teetee Evans JUVENILE CORRECTIONAL OFFICER [address] [place] [address] Refill Request Social History Tobacco UseTypesPacks/DayYears UsedDateSmoking Tobacco: QsujkmTdeggfrgfw1Fcvw: 01/2017Smokeless Tobacco: NeverAlcohol UseStandard Drinks/WeekCommentsYes0 (1 standard drink = 0.6 oz pure alcohol)SociallySocial Connection and Isolation PanelAnswerDate RecordedFrequency of Communication with Friends and FamilyNot on file12/30/2023How often do you get together with friends or relatives?More than three times a week12/30/2023ttends Sikhism ServicesNot on file12/30/2023 Active Member of Clubs or OrganizationsNot on file12/30/2023ttends Club or Organization MeetingsNot on file12/30/2023Marital StatusNot on file12/30/2023 PHQ-2AnswerDate RecordedPHQ-2 Osrjk979Finutah valley hospital [place] of Occupational Health - Occupational Stress QuestionnaireAnswerDate RecordedDo you feel stress - tense, restless, nervous, or anxious, or unable to sleep at night because your mind is troubled all the time - these days?Only a dbxgqo4912/30/2023Exercise Vital SignAnswerDate RecordedOn average, how many days [...] in an abandoned building, in an overnight snf, or couch-surfing.)Yes10/12/2024re you worried about losing your [...] RecordedSex Assigned at BirthNot on fileLegal Sex Atpate3909/06/2012 3:40 AM CSTGender IdentityNot on fileSexual OrientationNot on fileOccupationIndustryJob Start DateJob End DatestudentNot on fileNot on fileNot on filedocumented as of this encounter Plan of Treatment DateTypeDepartmentCare Team (Latest Contact Info)Bcvkgxhgpcb58/02/2026 10:[address] [facility] [address] [facility] [address] [place] [address] Teetee Evans CNP [address] [place], [place] [address] documented as of this encounter Visit Diagnoses Diagnosis Adult ADHD Attention deficit disorder with hyperactivity documented in this encounter Additional Health Concerns AssessmentNoted TimePHQ-9 Depression Total Score: 12:45 PM CDT documented as of this encounter Care Teams Team MemberRelationshipSpecialtyStart DateEnd Date Teetee Evans CNP [address] [place], [place] [address] PCP - GeneralInternal Medicine11/12/24 Jonathon Vasquez MD [address] [place], [place] [address] Maternal Medicine SpecialistOB/Gyn01/30/18 Carissa Hanna MD [address] [place] [address] MDOB/Gyn02/23/18 Krishna Hannah PA-C [address] [place] [address] Referring PhysicianFamily Medicine05/08/22 Lee Lugo MD [address] [place] [address] MDAllergy & Immunology05/08/22 Mayte Alejandre PA-C [address] [place] [address] Physician AssistantDermatology05/16/22 Haim Darby MD [address] [place] [address] MDOB/Gyn12/31/23 Teetee Evans, JUVENILE CORRECTIONAL OFFICER [address] [place] [address] Assigned PCP07/26/25documented as of this encounter
[2025-10-29 20:12] VITALS: BP 114/78; PULSE 120; RESP 18; TEMP 37; O2SAT 95
--- NOTE | 2025-10-29 20:43 | ED.GENADULT ---
HPI - General Adult General Chief complaint: Fever Stated complaint: fever,cough,chills Time Seen by Provider: 10/29/25 20:19 History of Present Illness HPI narrative: This 25-year-old female comes in reporting upper respiratory symptoms for the past 3 days. This includes subjective fever with cough and body aches and pains and nasal congestion. She reports that she is about 17 weeks . She arrives here with normal vital signs. Her initial heart rate was elevated on arrival but at the time of my initial visit this had normalized. Related Data Home Medications ?Medication ?Instructions ?Recorded ?Confirmed docosahexaenoic acid 200 mg mg PO 01/17/23 10/12/25 capsule ( DHA) dextroamphetamine-amphetamine 30 30 mg PO QDAY 08/30/25 10/29/25 mg tablet (Adderall) Allergies Allergy/AdvReac Type Severity Reaction Status Date / Time amoxicillin Allergy Severe Anaphylaxis Verified 10/29/25 20:18 penicillin V Allergy Severe Anaphylaxis Verified 10/29/25 20:18 Review of Systems Status of ROS: Reports: 10 or more systems reviewed and unremarkable except as noted in History and below Narrative: Constitutional: No weight gain or loss. Eyes: No discharge. No vision changes. HENT: Nasal congestion, no sore throat, no ear pain. Cardiovascular: No chest pain, no palpitations. Respiratory: No shortness of breath, no wheezes. Frequent cough. Gastrointestinal: No abdominal pain, no vomiting, no diarrhea. Genitourinary: No dysuria, no hematuria. Musculoskeletal: Normal range of motion. Skin: No rashes, no pruritis. Neurological: No dizziness, weakness, sensory change, speech change. Endo/Heme/Allergies: No bruising or bleeding. No polydipsia. Pysch: no suicidality, no anxiety, no insomnia. All other systems reviewed and are negative. [facility] Medical History (Updated 10/29/25 @ 21:24 by Delano Souza MD) Incompetent cervix ?N88.3 - Incompetence of cervix uteri (ICD-10) History of labor ?Z87.51 - Personal history of pre-term labor (ICD-10) Anxiety and depression ?F41.9 - Anxiety disorder, unspecified (ICD-10) ?F32.A - Depression, unspecified (ICD-10) PTSD (post-traumatic stress disorder) ?F43.10 - Post-traumatic stress disorder, unspecified (ICD-10) Vestibular neuronitis ?H81.20 - Vestibular neuronitis, unspecified ear (ICD-10) History of spontaneous (2018) ?Z87.59 - Personal history of other complications of , childbirth and the puerperium (ICD-10) Chorioamnionitis (2018) ?O41.1290 - Chorioamnionitis, unspecified trimester, not applicable or unspecified (ICD-10) Surgical History History of vaginal delivery History of ovarian cystectomy (10/25/20) ?Z98.890 - Other specified postprocedural states (ICD-10) ?Z87.42 - Personal history of other diseases of the female genital tract (ICD-10) Cervical cerclage suture present in third trimester (03/10/20) ?O34.33 - Maternal care for cervical incompetence, third trimester (ICD-10) Family History Daughter Polydactyly Son Autism Social History Narrative: to Doug. Lives in [place] with , 5 kids, mom, and her boyfriend. Stay at home mom. Marijuana use. H/o abuse. What is your current living situation?: I presently have a place to live Problems where you live: no known problems In the past 12 months, utilities in danger of being shut off: no In past 12 months, lack of transportation kept you from medical appts, meetings, work, or getting things needed for daily living: yes In the past 12 mos, have been you worried that your food would run out before you had money to buy more?: sometimes true In the past 12 mos, the food you bought just didn't last and you didn't have money to buy more?: never true Smoking Status: Never smoker Do you use any of these nicotine containing products: None Second hand tobacco smoke exposure: No How often do you have a drink containing alcohol: never How often do you have six or more drinks on one occasion: Never AUDIT-C Alcohol total score: 0 Non-prescribed substance use: denies use How often does anyone, including family, friends and others, physically hurt you: never How often does anyone, including family, friends and others, insult or talk down to you: never How often does anyone, including family, friends and others, threaten you with harm: never How often does anyone, including family, friends and others, scream or curse at you: never service: No Health Related Social Needs: food insecurity (Z59.41) and transportation insecurity (Z59.82) Exam Narrative: Exam Narrative: Constitutional: Well-developed, well-nourished, no acute distress. HEENT: Normocephalic, atraumatic. Neck: Normal range of motion. Nontender. Supple. Heart: Regular. No murmurs. Normal rate. Intact distal pulses. Lungs: Clear to auscultation. No chest discomfort. No wheezes, rhonchi, or rales. Abdomen: Normal bowel sounds. Nontender. No rebound tenderness. Genitalia: Deferred. Back: No midline tenderness. Normal range of motion. Extremities: Normal range of motion. No injury. Skin: Intact. No rash. Warm. No erythema or pallor. Neurologic: No altered sensation. No weakness. Alert and oriented. Nursing notes and vitals signs are reviewed. Const: Vital Signs, click to edit/add: Vital Signs - 24 hr 10/29/25 20:12 Temperature 98.6 F Pulse Rate [Pulse Oximeter] 120 H Respiratory Rate 18 Blood Pressure [Ri ght Upper Arm] 114/78 Pulse Oximetry 95 Oxygen Delivery Me thod Room Air Course Vital Signs Vital signs: Initial Vital Signs Temperature 98.6 F 10/29/25 20:12 Temperature Source Temporal Artery Scan 10/29/25 20:12 Pulse Rate 120 H 10/29/25 20:12 Respiratory Rate 18 10/29/25 20:12 Blood Pressure 114/78 10/29/25 20:12 Blood Pressure Mean 90 10/29/25 20:12 Blood Pressure Position Sitting 10/29/25 20:12 Pulse Oximetry 95 10/29/25 20:12 Oxygen Delivery Method Room Air 10/29/25 20:12 Vital Signs Temperature 98.6 F 10/29/25 20:12 Pulse Rate 120 H 10/29/25 20:12 Respiratory Rate 18 10/29/25 20:12 Blood Pressure 114/78 10/29/25 20:12 Pulse Oximetry 95 10/29/25 20:12 Oxygen Delivery Method Room Air 10/29/25 20:12 Temperature 98.6 F 10/29/25 20:12 Pulse Rate 120 H 10/29/25 20:12 Respiratory Rate 18 10/29/25 20:12 Blood Pressure 114/78 10/29/25 20:12 Pulse Oximetry 95 10/29/25 20:12 Oxygen Delivery Method Room Air 10/29/25 20:12 Medications Administered Medications: Generic Name Dose Route Start Last Admin Trade Name Niall PRN Reason Stop Dose Admin Dexamethasone 10 mg 10/29/25 20:42 10/29/25 21:02 Dexamethasone 10 Mg/Ml Inj PO 10/29/25 20:43 10 mg ONCE ONE Administration Medical Decision Making MDM Narrative Medical decision making narrative: This patient comes in with upper respiratory symptoms as described above. Nasal pharyngeal swab returns positive for influenza A. Her symptoms started about 3 days ago and she has not than a good candidate for Tamiflu. I did provide [facility] prescription for Toradol and recommended using [id number] medications also for symptomatic relief. Lab Data Labs: Lab Results 10/29/25 Range/Units 20:20 SARS-CoV-2 (PCR) Negative SARS-CoV-2 (Negative) Influenza Type A (PCR) POSITIVE PCR FLU A A (Negative) Influenza Type B (PCR) Negative PCR FLU B (Negative) RSV (PCR) Negative PCR RSV (Negative) Discharge Plan Discharge Clinical Impression: Influenza A Patient Disposition: Home, Self-Care Condition: Stable Additional Instructions: Take medication as prescribed and needed. Okay to use [id number] medicines such as Tylenol and Robitussin DM or Mucinex DM. Follow up with MD return if worsening. Prescriptions: No Action DHA 200 mg capsule PO dextroamphetamine-amphetamine [Adderall] 30 mg tablet 30 mg PO QDAY Follow Up/Referrals: Provider,Not a Local [Primary Care Provider, Family Practice] Stand Alone Forms: MyHealth Info Instructions
[2025-10-29 21:09] LABS: PCR FLU A POSITIVE PCR FLU A (Negative); PCR FLU B Negative PCR FLU B (Negative); PCR RSV Negative PCR RSV (Negative); SARS PCR* Negative SARS-CoV-2 (Negative)
[2025-10-29 21:31] VITALS: BP 121/87; PULSE 105; RESP 18; TEMP 36.8; O2SAT 95
== END 2025-10-29 21:32 | disposition home or self-care (01) ==
PROVIDERS: Emergency Provider Emergency Medicine Emergency Medical Services
DX: J10.1 Influenza due to other identified influenza virus with other respiratory manifestations (principal)
CPT/HCPCS: 87631; 99283; 99284; J1100